=== PATIENT | female | born 1970 | race Caucasian/White ===

== ENCOUNTER 2017-01-16 19:00 | Inpatient (IN) | payer BC ==
[~2017-01-16] VITALS: Ht 165.1 cm; Wt 90.5 kg
[~2017-01-16 19:00] MED LIST: ALPR0.5T PO; ATOR20TA PO; CYCL1DRO EACHEYE; LEVO75TA5 PO; LOSA1TAB17 PO; METF500T4 PO; METO50TA10 PO; MOME17SP NS; OMEG500C PO
--- NOTE | 2017-01-16 19:05 | ED.ADGEN ---
Past History Past Medical History: Hypertension, Migraines Adult General Chief Complaint Chief Complaint " .. I some times get migraine headaches.. but the usually go away with tylenol or ibuprofen.. this one is more persistent.." HPI HPI Patient is a 46 year old female who presents with complaints of migraine headache. Denies travel. Patient denies history cancer. Patient denies any trauma eyes any specific ill contacts. Patient does state she feels like she's trying to come down for cold. Patient states she has been taking her hypertensive meds directed. Patient normally follows with . Review of Systems Review of Systems Constitutional: Denies fever or chills [] Eyes: Denies change in visual acuity, redness, or eye pain. Pt. complains of some photophobia HENT: Denies nasal congestion or sore throat [] Respiratory: Denies cough or shortness of breath [] Cardiovascular: No additional information not addressed in HPI [] GI: Denies abdominal pain, , vomiting, bloody stools or diarrhea [] complaints of nausea : Denies dysuria or hematuria [] Musculoskeletal: Denies back pain or joint pain [] Integument: Denies rash or skin lesions [] Neurologic: Complaints of headache. Denies, focal weakness or sensory changes [] Endocrine: Denies polyuria or polydipsia [] Family History Family History Noncontributory Current Medications Current Medications Current Medications Medications (Trade) Dose Ordered Sig/Ann-Marie Start Time Stop Time Status Last Admin Dose Admin Clonidine HCl (Catapres) 0.2 mg 1X ONCE 01/16/17 20:30 01/16/17 20:31 DC 01/16/17 21:21 0.2 MG Lactated Ringer's (Iv Lactated Ringers) 1,000 ml @ 1,000 mls/hr Q1H 01/16/17 20:15 01/16/17 21:20 1,000 MLS/HR Lorazepam 1 mg 1 mg 1X ONCE 01/16/17 20:30 01/16/17 20:31 DC 01/16/17 21:22 1 MG Orphenadrine Citrate 60 mg 60 mg 1X ONCE 01/16/17 20:30 01/16/17 20:31 DC 01/16/17 21:22 60 MG Oxycodone/ Acetaminophen (Percocet 10/325) 1 tab 1X ONCE 01/16/17 20:30 01/16/17 20:31 DC 01/16/17 21:22 1 TAB Sodium Chloride (Iv Sodium Chloride 0.9% 50ml) 50 ml @ As Directed STK-MED ONCE 01/16/17 21:10 01/16/17 21:11 DC Valproic Acid 500 mg 500 mg STK-MED ONCE 01/16/17 21:09 01/16/17 21:10 DC Valproic Acid/ Sodium Chloride (Depacon/Iv Sodium Chloride 0.9% 50ml) 55 ml @ 55 mls/hr 1X STAT 01/16/17 20:23 01/16/17 21:22 DC 01/16/17 21:23 55 MLS/HR Allergies Allergies Allergies Coded Allergies Type Severity Reaction Last Updated Verified cephalexin Allergy Unknown 10/30/14 Yes ciprofloxacin Allergy Unknown 10/30/14 Yes morphine Allergy Unknown 10/30/14 Yes Physical Exam Physical Exam Constitutional: Mild distress, non-toxic appearance. [] HENT: Normocephalic, atraumatic, bilateral external ears normal, oropharynx moist, no oral exudates, nose normal. [] Eyes: PERRLA, EOMI, conjunctiva normal, no discharge. Glasses. Mild photophobia Neck: Normal range of motion, no tenderness, supple, no stridor. [] Cardiovascular:Heart rate regular rhythm, no murmur [] Lungs & Thorax: Bilateral breath sounds clear to auscultation [] Abdomen: Bowel sounds normal, soft, no tenderness, no masses, no pulsatile masses. [Obese. Skin: Warm, dry, no erythema, no rash. [] Back: No tenderness, no CVA tenderness. [] Extremities: No tenderness, no cyanosis, no clubbing, ROM intact, no edema. [] Neurologic: Alert and oriented X 3, normal motor function, normal sensory function, no focal deficits noted. No drift. No Romberg. Ferritin nose good. Soaking Tank Worker equal. DTRs are +2 at patella and brachial. Psychologic: Affect anxious, judgement normal, mood normal. [] Current Patient Data Vital Signs Vital Signs Date Time Temp Pulse Resp B/P Pulse Ox O2 Delivery O2 Flow Rate FiO2 01/16/17 22:52 68 20 146/58 90 Room Air 01/16/17 19:43 98.1 Lab Results Laboratory Tests Test 01/16/17 20:55 01/16/17 21:30 White Blood Count 8.5x10^3/uL (4.0-11.0) Red Blood Count 4.61x10^6/uL (3.50-5.40) Hemoglobin 14.2g/dL (12.0-15.5) Hematocrit 43.1% (36.0-47.0) Mean Corpuscular Volume 94fL (79-100) Mean Corpuscular Hemoglobin 31pg (25-35) Mean Corpuscular Hemoglobin Concent 33g/dL (31-37) Red Cell Distribution Width 13.3% (11.5-14.5) Platelet Count 201x10^3/uL (140-400) Neutrophils (%) (Auto) 54% (31-73) Lymphocytes (%) (Auto) 36% (24-48) Monocytes (%) (Auto) 7% (0-9) Eosinophils (%) (Auto) 2% (0-3) Basophils (%) (Auto) 1% (0-3) Neutrophils # (Auto) 4.6x10^3uL (1.8-7.7) Lymphocytes # (Auto) 3.1x10^3/uL (1.0-4.8) Monocytes # (Auto) 0.6x10^3/uL (0.0-1.1) Eosinophils # (Auto) 0.2x10^3/uL (0.0-0.7) Basophils # (Auto) 0.0x10^3/uL (0.0-0.2) Erythrocyte Sedimentation Rate 34 (0-25) H PTT 23SEC (23-33) D-Dimer (Tabitha) 0.30mg/L (0.00-0.50) Sodium Level 146mmol/L (136-145) H Potassium Level 3.6mmol/L (3.5-5.1) Chloride Level 105mmol/L (98-107) Carbon Dioxide Level 29mmol/L (21-32) Anion Gap 12 (6-14) Blood Urea Nitrogen 10mg/dL (7-20) Creatinine 0.8mg/dL (0.6-1.0) Estimated GFR (Cockcroft-Gault) 76.6 Glucose Level 109mg/dL (70-99) H Calcium Level 9.5mg/dL (8.5-10.1) Magnesium Level 2.1mg/dL (1.8-2.4) Total Bilirubin 0.3mg/dL (0.2-1.0) Direct Bilirubin 0.1mg/dL (0.0-0.2) Aspartate Amino Transferase (AST) 42U/L (15-37) H Alanine Aminotransferase (ALT) 45U/L (14-59) Alkaline Phosphatase 95U/L (46-116) Troponin I Quantitative < 0.017ng/mL (0-0.055) C-Reactive Protein 3.1mg/L (0-3.3) FO-[id number]-[id number]-Type Natriuretic Peptide 34pg/mL (0-124) Total Protein 7.8g/dL (6.4-8.2) Albumin 4.0g/dL (3.4-5.0) Lipase 237U/L (73-393) Urine Collection Type Unknown Urine Color Yellow Urine Clarity Clear Urine pH 7.0 Urine Specific [place] 1.015 Urine Protein Neg (NEG-TRACE) Urine Glucose (UA) Negmg/dL (NEG) Urine Ketones (Stick) Negmg/dL (NEG) Urine Blood Trace (NEG) Urine Nitrite Neg (NEG) Urine Bilirubin Neg (NEG) Urine Urobilinogen Dipstick 0.2mg/dL (0.2 mg/dL) Urine Leukocyte Esterase Neg (NEG) Urine RBC 0/HPF (0-2) Urine WBC Occ/HPF (0-4) Urine Squamous Epithelial Cells Occ/LPF Urine Bacteria 0/HPF (0-FEW) Urine Opiates Screen Neg (NEG) Urine Methadone Screen Neg (NEG) Urine Barbiturates Neg (NEG) Urine Phencyclidine Screen Neg (NEG) Urine Amphetamine/Methamphetamine Neg (NEG) Urine Benzodiazepines Screen Pos (NEG) Urine Cocaine Screen Neg (NEG) Urine Cannabinoids Screen Neg (NEG) Urine Ethyl Alcohol Neg (NEG) EKG EKG My interpretation of EKG shows a sinus 68 with no findings acute STEMI [] Radiology/Procedures Radiology/Procedures Interpretation CT head shows no shift, mass, edema, bleed, or fracture. See formal report when available [] Course & Med Decision Making Course & Med Decision Making Pertinent Labs and Imaging studies reviewed. (See chart for details). Discussed options and treatment. Patient this time declines to have spinal tap. Pt. exhibits UCAR capacity. Discussed presentation, testing and tx.plan with Dr. Menjivar, will admit for further eval and tx. . Consult in am neurology. [] Final Impression Final Impression 1. Accelerated hypertension 2. Nausea and vomiting 3. Migraine headache 4. Hypernatremia 5. Elevated AST 6. Lt. Otitis [] Problems: Dragon Disclaimer Dragon Disclaimer This electronic medical record was generated, in whole or in part, using a voice recognition dictation system. BEA MCCOY MD Jan 16, 2017 19:05
[2017-01-16] MEDS ORDERED: IV RINGERS SOLUTION,LACTATED 1,000 ML IV SCH (20:15)
[2017-01-16] MEDS ORDERED: VALPROATE SODIUM 500 MG in IV NORMAL SALINE 50ML 50 ML IV STA (20:23)
[2017-01-16] MEDS ORDERED: ORPHENADRINE CITRATE 60 MG/2 ML VIAL. IV ONE (20:30)
[2017-01-16] MEDS ORDERED: LORAZEPAM 2 MG/ML VIAL IV ONE ×2 (20:30→23:15)
[2017-01-16] MEDS ORDERED: OXYCODONE/APAP 10/325 TABLET. PO ONE (20:30)
[2017-01-16] MEDS ORDERED: CLONIDINE HCL 0.1 MG TABLET PO ONE ×2 (20:30→23:00)
--- NOTE | 2017-01-16 21:00 | RAD ---
PROCEDURE CT head without contrast. HISTORY Elevated blood pressure, dizziness, headache today. TECHNIQUE Helical CT imaging of the brain is performed without IV contrast. PQRS: One or more the following individualized dose reduction techniques were utilized for the study: 1. Automated exposure control. 2. Adjustment of the mA and/or kV according to patient size. 3. Use of iterative reconstruction technique. COMPARISON MR brain with and without contrast October 30, 2014. FINDINGS There is no midline shift or mass effect. No extra-axial fluid collection or intraparenchymal hemorrhage. Harper-white matter differentiation is preserved. Ventricles and sulci are normal for patient age. The visualized paranasal sinuses and mastoid air cells are clear. The globes and orbits appear intact. No acute calvarial abnormality. IMPRESSION No acute intracranial abnormality. Electronically signed by: Jb Diaz MD (Jan 16, 2017 20:59:13)
[2017-01-16] MEDS ORDERED: VALPROATE SODIUM 500 MG/5 ML VIAL IV ONE (21:09)
[2017-01-16] MEDS ORDERED: IV NORMAL SALINE 50ML 50 ML ONE (21:10)
[2017-01-16 21:35] LABS: BASO % 1 % (0-3); EOS # 0.2 x10^3/uL (0.0-0.7); EOS % 2 % (0-3); HEMATOCRIT 43.1 % (36.0-47.0); HEMOGLOBIN 14.2 g/dL (12.0-15.5); LYMPH # 3.1 x10^3/uL (1.0-4.8); LYMPH % 36 % (24-48); MEAN CORPUSCULAR HEMOGLOBIN 31 pg (25-35); MEAN CORPUSCULAR HGB CONC 33 g/dL (31-37); MEAN CORPUSCULAR VOLUME 94 fL (79-100); MONO # 0.6 x10^3/uL (0.0-1.1); MONO % 7 % (0-9); NEUT # 4.6 x10^3uL (1.8-7.7); NEUT % 54 % (31-73); PLATELET COUNT 201 x10^3/uL (140-400); RED BLOOD COUNT 4.61 x10^6/uL (3.50-5.40); RED CELL DISTRIBUTION WIDTH 13.3 % (11.5-14.5); WHITE BLOOD COUNT 8.5 x10^3/uL (4.0-11.0)
[2017-01-16 22:05] LABS: CALCIUM 9.5 mg/dL (8.5-10.1); CREATININE 0.8 mg/dL (0.6-1.0); DIRECT BILIRUBIN 0.1 mg/dL (0.0-0.2); GFR 76.6; MAGNESIUM 2.1 mg/dL (1.8-2.4); POTASSIUM 3.6 mmol/L (3.5-5.1); TOTAL BILIRUBIN 0.3 mg/dL (0.2-1.0); TOTAL PROTEIN 7.8 g/dL (6.4-8.2)
[2017-01-16 22:16] LABS: AMPHETAMINE/METHAMPHETAMINE NEG (NEG); BARBITURATES NEG (NEG); BENZODIAZEPINES POS (NEG); CANNABINOIDS NEG (NEG); COCAINE NEG (NEG); METHADONE NEG (NEG); OPIATES NEG (NEG); PHENCYCLIDINE NEG (NEG)
[2017-01-16 22:23] LABS: BACTERIA,URINE 0 /HPF (0-FEW); BILIRUBIN,URINE NEG (NEG); CLARITY,URINE CLEAR; COLOR,URINE YELLOW; GLUCOSE,URINE NEG (NEG); NITRITE,URINE NEG (NEG); RBC,URINE 0 /HPF (0-2); SQUAMOUS EPITHELIAL CELL,UR OCC /LPF; UROBILINOGEN,URINE 0.2 mg/dL (0.2 mg/dL); WBC,URINE OCC /HPF (0-4)
--- NOTE | 2017-01-16 22:54 | EKG ---
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
[2017-01-16 22:56] LABS: SEDIMENTATION RATE 34 (0-25)
[2017-01-16] MEDS ORDERED: PROMETHAZINE IM 25 MG/ML VIAL IM ONE (23:00)
[2017-01-16] MEDS ORDERED: SUMATRIPTAN 6 MG/0.5 ML VIAL. SQ ONE (23:00)
[2017-01-16] MEDS ORDERED: FENTANYL PF 100 MCG/2 ML VIAL. IV ONE (23:00)
[2017-01-16] MEDS ORDERED: CLONIDINE TTS-2 PATCH TD ONE (23:00)
[2017-01-16] MEDS ORDERED: DIPHENHYDRAMINE 50 MG/ML VIAL IVP ONE (23:00)
[2017-01-16] MEDS: ONDANSETRON PF 4 MG/2 ML VIAL. IV PRN (23:20)
--- NOTE | 2017-01-17 00:11 | ACF ---
Admission Criteria Forms HEADACHES Clinical Indications for Admission to Inpatient Care (Place 'X' for any and all applicable criteria): Admission is indicated for ANY ONE of the following(1)(2)(3)(4): [X]I. Inpatient admission required rather than observational care (Also use Headaches: Observation Care as appropriate) because of ANY ONE of the following: [ ]a) Severe pain requiring acute inpatient management [ ]b) Altered mental status that is severe or persistent [ ]c) Vomiting or dehydration that is severe or persistent [ ]d) New-onset focal neurologic deficit that is severe or persistent [X]e) Hypertension requiring inpatient treatment [ ]f) Severe (new) neurologic findings requiring inpatient care as indicated by ANY ONE of following(9)(10): [ ]1) Papilledema [ ]2) Cerebral edema [ ]3) Mass effect on CT scan [ ]4) Cerebral bleeding, ischemia, or vasospasm(16) [ ]5) Hydrocephalus(17) [ ]6) Uncontrolled seizures [ ]g) IV infusion of anticoagulation, platelet inhibitors vasoactive, or antiarrhythmic medication. [ ]h) Cerebral bleeding, hydrocephalus, or vasospasm monitoring (16) [ ]i) Increased intracranial pressure or cerebral edema monitoring (17) [ ]j) Other condition, treatment or monitoring requiring inpatient admission [ ]II. Unruptured but threatening aneurysm or vascular malformation [ ]III. Venous sinus thrombosis [ ]IV. Increased intracranial pressure [ ]V. Cerebral spinal fluid leak with decreased intracranial pressure [ ]. Medication-overuse headache that has failed all outpatient management options [ ]VII. Vasculitis (eg, giant cell (temporal) arteritis, central nervous system vasculitis) requiring IV corticosteroids, IV antithrombotic therapy, or inpatient monitoring (eg, visual symptoms or findings, other ischemic manifestations)[A](10)(11) Extended stay beyond goal length of stay may be needed for (27): [ ]a) Intractable migraine [ ]b) Subarachnoid or intracranial hemorrhage [ ]c) Malignant hypertension [ ]d) Detoxification from drug withdrawal in medication-overuse headache (29) The original [facility] content created by Abdirahman Tipton has been revised. The portions of the content which have been revised are identified through the use of italic text or in bold, and Abdirahman Tipton has neither reviewed nor approved the modified material.All other unmodified content is copyright [facility]. Please see references footnoted in the original [facility] edition 2016 Admission Criteria Met?: Yes BILL CHRISTIE Jan 17, 2017 00:11
[2017-01-17 00:22] VITALS: BP 157/92
[2017-01-17] MEDS ORDERED: AMOX1TAB61 PO (00:40)
[2017-01-17] MEDS ORDERED: MESA0.37 PO (00:40)
[2017-01-17] MEDS ORDERED: SERT50TA PO (00:53)
[2017-01-17] MEDS ORDERED: METO100T11 PO (00:53)
[2017-01-17 04:12] LABS: BASO # 0.1 x10^3/uL (0.0-0.2); BASO % 1 % (0-3); EOS # 0.2 x10^3/uL (0.0-0.7); EOS % 3 % (0-3); HEMATOCRIT 40.2 % (36.0-47.0); HEMOGLOBIN 13.4 g/dL (12.0-15.5); LYMPH # 3.7 x10^3/uL (1.0-4.8); LYMPH % 40 % (24-48); MEAN CORPUSCULAR HEMOGLOBIN 31 pg (25-35); MEAN CORPUSCULAR HGB CONC 33 g/dL (31-37); MEAN CORPUSCULAR VOLUME 94 fL (79-100); MONO # 0.6 x10^3/uL (0.0-1.1); MONO % 6 % (0-9); NEUT # 4.6 x10^3uL (1.8-7.7); NEUT % 50 % (31-73); PLATELET COUNT 192 x10^3/uL (140-400); RED BLOOD COUNT 4.27 x10^6/uL (3.50-5.40); RED CELL DISTRIBUTION WIDTH 13.3 % (11.5-14.5); WHITE BLOOD COUNT 9.3 x10^3/uL (4.0-11.0)
[2017-01-17 04:49] LABS: ALBUMIN 3.8 g/dL (3.4-5.0); ALBUMIN/GLOBULIN RATIO 1.1 (1.0-1.7); GFR 59.2; POTASSIUM 4.2 mmol/L (3.5-5.1); TOTAL BILIRUBIN 0.3 mg/dL (0.2-1.0); TOTAL PROTEIN 7.3 g/dL (6.4-8.2)
[2017-01-17] MEDS: FENTANYL PF 100 MCG/2 ML VIAL. IV PRN ×2 (05:11→07:33)
[2017-01-17] MEDS: LEVOTHYROXINE 75 MCG TABLET PO SCH (05:11)
[2017-01-17 05:27] VITALS: BP 110/66
[2017-01-17] MEDS: ONDANSETRON PF 4 MG/2 ML VIAL. IV PRN ×3 (07:33→22:21)
[2017-01-17] MEDS: AMOXICILLIN/K CLAV 875/125MG TABLET. PO SCH ×2 (08:52→19:47)
[2017-01-17] MEDS: LOSARTAN 50 MG TABLET. PO SCH (08:53)
[2017-01-17] MEDS: HYDROCHLOROTHIAZIDE 25 MG TABLET PO SCH (08:54)
[2017-01-17] MEDS: ALPRAZOLAM 0.5 MG TABLET PO SCH (08:54)
[2017-01-17] MEDS: MESALAMINE 1.2 GM TABLET.DR PO SCH (08:54)
[2017-01-17] MEDS: SERTRALINE 50 MG TABLET. PO SCH ×2 (08:55→19:47)
[2017-01-17] MEDS ORDERED: IV RINGERS SOLUTION,LACTATED 1,000 ML IV SCH ×2 (09:00→13:30)
[2017-01-17] MEDS ORDERED: AMOXICILLIN/K CLAV 875/125MG TABLET. PO SCH (09:00)
[2017-01-17] MEDS: TOPIRAMATE 25 MG TABLET. PO SCH ×2 (09:54→19:47)
[2017-01-17] MEDS ORDERED: KETOROLAC 30 MG/ML VIAL. IV ONE (10:00)
[2017-01-17 10:45] VITALS: BP 106/70
--- NOTE | 2017-01-17 11:31 | CONS ---
DATE OF CONSULTATION: 01/17/2017 NEUROLOGIC CONSULTATION REFERRING PHYSICIAN: Stefan Menjivar MD REASON FOR CONSULTATION: Severe headaches. HISTORY OF PRESENT ILLNESS: This is a 46-year-old right-handed female who was admitted to Emergency Room yesterday after she presented with severe and recurrent throbbing frontal and temporal headaches of 7 days' duration. The patient described her headache as severe and rated at 8/10 with Tylenol. She also complains of intermittent nausea and photophobia. She described being dizzy as "unsteady." She has not had any falls. The patient has not had any history of migraine in the past, but she would have three similar headaches monthly. The patient has been suffering from left otitis media since beginning of this month. She has been treated with amoxicillin and then with Augmentin. She has been using antibiotics for the last 2 weeks. She described tenderness and swelling around the left ear. She denies visual disturbances, chest pain, shortness of breath or palpitation, dysarthria, dysphagia, weakness or paresthesia. Initial nonenhanced head CT scan revealed no acute intracranial process. The patient has had longstanding history of hypertension and her blood pressure has been high in the last 2 days. The patient declined spinal tap in Emergency Room. PAST MEDICAL HISTORY: Significant for hypertension, intermittent headaches, anxiety, Crohn disease, fibromyalgia and hypothyroidism. PAST SURGICAL HISTORY: Significant for , tonsillectomy, adenoidectomy, cervical spine fusion, right shoulder surgery and carpal tunnel release. SOCIAL HISTORY: The patient is . She has 2 children. She denies smoking, alcohol drinking, or illicit drug use. FAMILY HISTORY: Positive for hypothyroidism and hypertension. CURRENT MEDICATIONS: Hydrochlorothiazide 25 mg p.o. daily, mesalamine 1.2 g p.o. daily, losartan 100 mg daily, sertraline 50 mg b.i.d., metoprolol XL 100 mg daily, alprazolam 0.5 mg p.o. daily, Augmentin 875/125 one tablet p.o. daily, levothyroxine 75 mcg p.o. daily, Fentanyl 50 mcg IV q.2h p.r.n., Zofran 8 mg q.4h hours p.r.n. for nausea. ALLERGIES: CEPHALEXIN, CIPROFLOXACIN AND MORPHINE. PHYSICAL EXAMINATION: GENERAL: Obese white female, not in acute distress. She weighs 198. VITAL SIGNS: Blood pressure 110/66, respiratory rate 18, pulse is 66 and regular, temperature is 97.8 and oxygen saturation 94% on room air. HEENT: Normocephalic, atraumatic, otherwise unremarkable. NECK: Supple. Negative for carotid bruit, lymphadenopathy or thyromegaly. LUNGS: Clear to A and P. CARDIOVASCULAR: Regular rate and rhythm, normal S1, S2. There is no S3, S4 or murmur. ABDOMEN: Soft. Bowel sounds positive. EXTREMITIES: Negative for cyanosis, clubbing or pitting edema. NEUROLOGIC: 1. MENTAL STATUS: The patient is alert and oriented x 3. The speech is fluent. There is no language dysfunction. Memory, judgment, and abstract thinking are normal. The patient denies hallucination or delusion. 2. CRANIAL NERVES: Visual hunter are full. The pupils are reactive to light and accommodation. The extraocular movements are intact. There is no nystagmus. There is no facial motor or sensory deficit. Hearing is intact bilaterally. The palate is elevated symmetrically. Sternocleidomastoid muscles are powerful bilaterally. The patient shrugs her shoulders symmetrically and protrudes her tongue in the midline without fasciculation or atrophy. 3. MOTOR EXAMINATION: No focal muscle bulk was seen. The tone is normal. The strength is 5/5 throughout. 4. SENSORY EXAMINATION: Normal pinprick, light touch, vibratory and position senses. 5. Deep tendon reflexes are symmetric and active without pathologic responses. 6. Gait and coordination are normal. LABORATORY DATA: CBC revealed white blood cells of 9300, hemoglobin 13.4, hematocrit 40.2 and platelet count 192,000. Chemistry revealed sodium 143, potassium 4.2, chloride 105, CO2 of 30, BUN 12, creatinine 1, glucose is 113, calcium 9 and AST is 40. Troponin level is less than 0.017. Urinalysis is negative for urinary tract infections. Urine drug screen is positive for benzodiazepine. IMPRESSION: 1. Intractable headaches, likely represent mixed tension and migraine headaches. 2. Hypertension may have contributed to #1. 3. Anxiety, fibromyalgia, Crohn disease, left otitis media. RECOMMENDATIONS: 1. We will start the patient on topiramate 25 mg twice daily. 2. The patient will receive for severe headaches Toradol 30 mg IV p.r.n. 3. We will start the patient on Lortab 5/325 one tablet q.6h p.r.n. for continuous headaches. 4. Avoid excessive narcotic use as possible. 5. Continue with current management initiated by Dr. Menjivar. M Ayad NEWMAN MD DR: TYRONE/sp JOB#: [id number] / [id number]
[2017-01-17] MEDS: METOPROLOL SUCC 24HR ER 100 MG TAB.ER.24H. PO SCH (11:54)
[2017-01-17] MEDS: HYDROCODONE/APAP 5/325MG TABLET. PO PRN ×2 (14:23→22:21)
[2017-01-17 15:09] VITALS: BP 128/74
[2017-01-17] MEDS: IV RINGERS SOLUTION,LACTATED 1,000 ML IV SCH ×2 (15:45→19:46)
[2017-01-17] MEDS: HYDROMORPHONE PF 1 MG/ML DISP.SYRIN. IV PRN ×2 (16:57→19:48)
--- NOTE | 2017-01-17 17:21 | RAD ---
CT study of the soft tissues of the neck without contrast Indications: Swelling of the left jaw. Possible parotid abscess. Technique: Noncontrast helical CT scanning of the soft tissues of the neck was performed from the base of skull down to the lung apices. Without contrast, the sensitivity to detect organ pathology is decreased. PQRS Compliance Statement: One or more of the following individualized dose reduction techniques were utilized for this examination: 1. Automated exposure control 2. Adjustment of the mA and/or kV according to patient size 3. Use of iterative reconstruction technique Findings: Prominent symmetric parotid glands are seen. No parotid gland abscess is seen. There is a prominent intraparotid lymph node of the superficial lobe of the left parotid gland which measures 9 mm. The submandibular salivary glands are unremarkable. The adenoids and palatine tonsils are unremarkable. The epiglottis and aryepiglottic folds and preepiglottic fat space and true cords and false cords are unremarkable. No thyroid gland mass is seen. No enlarged cervical lymphadenopathy is seen. No lung apical infiltrate is seen. No osteolytic process is seen. Anterior cervical fusion is seen at C5-C7. No prevertebral soft tissue swelling or abscess is seen. There is no opacification of the mastoid sinus or middle ear cavity on either side. No opacification of maxillary sinuses is seen. The other paranasal sinuses are not completely seen in this study. IMPRESSION: 9 mm intraparotid lymph node of the superficial lobe of the left parotid gland. No abscess is seen. Both parotid glands are prominent but symmetric. This may be seen with mumps or sialoadenitis.
--- NOTE | 2017-01-17 17:50 | HP ---
ADMIT DATE: 01/17/2017 HISTORY OF PRESENT ILLNESS: The patient is a 46-year-old female patient, who basically complaint of left-sided headache. According to her, she started having headache for the last 6 days associated with nausea, vomiting and photophobia. Her headache normally response to Tylenol. She was diagnosed with left ear infection on 01/08/2017. At that time, she was started on amoxicillin, but her pain on the left side not resolved and she saw her primary care physician on 01/15/2017. Her amoxicillin was switched to Augmentin; however, she continued to have the headache and came back last night. She came to the Emergency Room and was given multiple medications including Toradol as well as fentanyl without much improvement. PAST MEDICAL HISTORY: Significant for hypertension, hypothyroidism, Crohn's disease, fibromyalgia, Sjogren's syndrome with dry eye and dry mouth. She was also diagnosed with rheumatoid arthritis. PAST SURGICAL HISTORY: Significant for cholecystectomy, total abdominal hysterectomy, bilateral salpingo-oophorectomy. She also has right shoulder arthroscopic surgery, neck surgery, carpal tunnel release, ulnar nerve transposition, rhinoplasty. She also underwent uvulopalatoplasty for obstructive sleep apnea. ALLERGIES: She is allergic to MORPHINE, CIPROFLOXACIN and KEFLEX. MEDICATIONS: She is currently on the following medications: She is on alprazolam for Xanax 1 mg daily, Augmentin 1 tablet twice a day, levothyroxine sodium 75 mcg once a day, losartan/hydrochlorothiazide 100/25 one tablet once a day, mesalamine 375 mg 4 capsules daily. She is on metoprolol succinate 100 mg once a day, sertraline for Zoloft 50 mg p.o. b.i.d. FAMILY HISTORY: She has 2 brothers, both older, one of them has hypothyroidism and one has CVA at age of 47. Her father is alive at the age of 71 and underwent open heart surgery and aortic valve replacement. He is known to have hyperlipidemia, seizure disorder and has had permanent pacemaker placed recently. Her mother is still alive at the age of 72 and is known to have hypertension and hyperlipidemia. SOCIAL HISTORY: She is , has daughter and a son. She never smoked. Drinks alcohol very occasionally. Does not use any drugs. 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 REVIEW OF SYSTEMS: The patient denied any blurring of vision, cataract, glaucoma or macular degeneration. She did complain of pain in her left side of the face, mostly prominent at the angle of left cho around the place of parotid gland, which is tender. She has tenderness on breathing pressure and tragus and also tenderness on the left side of the face. Denied any nosebleeds, stuffy nose or postnasal drip. Denied any sore throat, sore tongue, toothache, hoarseness of voice or difficulty swallowing. Did complain of nausea and vomiting. Denied any diarrhea or constipation. Denied any hematemesis, melena or hematochezia. Denied any dysuria, frequency or hematuria. Denied any chest pain, shortness of breath, orthopnea or paroxysmal nocturnal dyspnea. PHYSICAL EXAMINATION: GENERAL: On arrival to the Emergency Room, she looked well and was clearly in no apparent distress. She was pale, but no jaundice, cyanosis, or thyromegaly. No jugular venous distension. No lower limb edema. VITAL SIGNS: Her heart rate was 76, blood pressure 150/89, temperature was 98.1, respiratory rate was 20, and oxygen saturation was 97%. HEAD, EYES, EARS, NOSE AND THROAT: Showed normocephalic, atraumatic. NECK: Supple. HEART: Showed normal first and second heart sounds with no gallop, rub or murmur. CHEST: Clear to auscultation. No crepitation or rhonchi. ABDOMEN: Distended, soft, nontender. No guarding or rigidity. No organomegaly. All hernial orifices intact. Bowel sounds normal. NEUROLOGIC: She is awake, alert, responding appropriately. Her cranial nerves intact. EXTREMITIES: She moves her extremities without difficulty. She ambulates without assistance or assistive devices. I did examine her both ears and I really could not see any evidence of otitis externa or otitis media. Most of her tenderness is around the left cho angle around specifically over left parotid gland. LABORATORY DATA: Showed serum sodium 146, potassium 3.6, chloride 105, bicarbonate 29, anion gap of 12, BUN 10, creatinine 0.8, estimated GFR was 76 mL per minute. Her glucose was 109, calcium was 9.5, magnesium 2.1. Total bilirubin, AST, ALT, alkaline phosphatase were normal. Her total protein was 7.8, albumin 4. Lipase was 237. Prothrombin time was 23. D-dimer was 0.3. Her white cell count was 8500, hemoglobin 14, hematocrit 43, MCV 94 and platelet count 201,000. Urinalysis showed the urine was yellow, clear with a pH of 7, specific gravity of 1.015. The urine was negative for protein, glucose, ketones. There was trace of blood, negative for nitrite and leukocyte esterase. There are no rbc's, no wbc's and no bacteria. Her urine toxic screen was positive for benzodiazepine, negative for opiates, methadone, barbiturates, amphetamine, methamphetamine, , cocaine and Ethyl Alcohol. She did have a CT scan of the head, which basically showed that there is no midline shift or mass effect. No extraaxial fluid collection or intraparenchymal hemorrhage. Harper white matter differentiation is preserved. Ventricles and sulci are normal for the patient's age. The visualized paranasal sinuses and mastoid air cells are clear. The globes and orbits appear intact. No acute calvarial abnormality. IMPRESSION: In summary, this is a 46-year-old female patient, who came in with complaint of severe headache involving left side of her face that is unusual, also associated with some nausea, vomiting and photophobia and sensitivity to light and noise. So far all her lab works are unremarkable. We did consult Dr. Carrero for evaluation. She was admitted, started on IV fluid. We will continue with her medication and will consult Dr. Carrero for further evaluation and treatment. JOSE LEVINE MD DR: ASHTYN/sp JOB#: [id number] / [id number]
[2017-01-17 20:11] VITALS: BP 131/77
--- NOTE | 2017-01-17 20:37 | PN ---
DATE: 01/17/2017 SUBJECTIVE: The patient is resting slightly propped up in bed, continued to complain of severe pain in her left side of the face, most prominently around the left jaw angle, over the parotid gland. She has also some tenderness over the left side of the face ____ tragus, although there is no evidence of otitis externa or otitis media. There is no tenderness in the left temporomandibular joint. She opens and closes her mouth without difficulty and that does not reproduce her pain. She tried multiple medications including topiramate, Lortab together with Toradol and fentanyl without much improvement. PHYSICAL EXAMINATION: GENERAL: When I examined her this afternoon, she looked well and was clearly in no apparent respiratory distress, pale, but no jaundice, cyanosis or thyromegaly. No jugular venous distension. No lower limb edema. VITAL SIGNS: Her heart rate was 64, blood pressure 128/74, temperature was 98.1, respiratory rate 20 and oxygen saturation was 95%. HEAD, EYES, EARS, NOSE AND THROAT: Showed normocephalic, atraumatic. NECK: Supple. HEART: Showed normal first and second heart sounds. No gallop, rub or murmur. CHEST: Clear to auscultation. No crepitation or rhonchi. ABDOMEN: Distended, soft, nontender. No guarding or rigidity. No organomegaly. Hernial orifices intact. Bowel sounds normal. NEUROLOGIC: She is awake, alert, responding appropriately. Cranial nerves are intact. She moves extremities without difficulty. She ambulates without assistance or assistive devices. Her intake over the last 24 hours was 2400, no output was recorded. LABORATORY DATA: Her lab work this morning showed that her serum sodium was 143, potassium 4.2, chloride 105, bicarbonate 30, anion gap of 8, BUN 12, creatinine 1. Estimated GFR was 59 mL per minute. Her glucose was 113, calcium was 9. Total bilirubin was 0.3. AST, ALT, alkaline phosphatase were normal. Her total protein was 7.3, albumin 3.8. TSH was 2.688. C-reactive protein was 3.1. Her sedimentation rate was 34 mm per hour. Her white cell count this morning was 9300, hemoglobin 13.4, hematocrit 40, MCV 94 and platelet count of 192,000 with normal manual differential. ASSESSMENT: Severe left-sided facial pain with tenderness mostly around her left parotid gland. PLAN: My plan is to try some hydromorphone perhaps 1 mg every 3 hours and see if she responds to that. I will also arrange for a CT scan of the soft tissue of the neck to rule out the possibility of parotitis or parotid abscess given the fact that she has Sjogren syndrome and we will decide on further management accordingly. Meanwhile, we will continue with the antibiotic in the form of Augmentin, continue with all other medications including mesalamine for her Crohn's disease. JOSE LEVINE MD DR: ASHTYN/sp JOB#: [id number] / [id number]
[2017-01-18] MEDS: HYDROMORPHONE PF 1 MG/ML DISP.SYRIN. IV PRN ×4 (01:22→20:06)
[2017-01-18] MEDS: GUAIFENESIN DM 200MG/20MG 10 ML SYRUP. PO PRN ×2 (02:23→20:05)
[2017-01-18] MEDS: IV RINGERS SOLUTION,LACTATED 1,000 ML IV SCH ×3 (02:58→15:28)
[2017-01-18] MEDS: LEVOTHYROXINE 75 MCG TABLET PO SCH (05:37)
[2017-01-18 05:54] VITALS: BP 127/79
[2017-01-18 06:54] LABS: HEMATOCRIT 36.9 % (36.0-47.0); HEMOGLOBIN 12.4 g/dL (12.0-15.5); RED BLOOD COUNT 3.96 x10^6/uL (3.50-5.40); WHITE BLOOD COUNT 6.1 x10^3/uL (4.0-11.0)
[2017-01-18 07:10] LABS: CALCIUM 8.3 mg/dL (8.5-10.1); GFR 59.2; POTASSIUM 3.4 mmol/L (3.5-5.1)
[2017-01-18] MEDS: LOSARTAN 50 MG TABLET. PO SCH (08:39)
[2017-01-18] MEDS: AMOXICILLIN/K CLAV 875/125MG TABLET. PO SCH ×2 (08:39→20:05)
[2017-01-18] MEDS: MESALAMINE 1.2 GM TABLET.DR PO SCH (08:39)
[2017-01-18] MEDS: HYDROCHLOROTHIAZIDE 25 MG TABLET PO SCH (08:39)
[2017-01-18] MEDS: ALPRAZOLAM 0.5 MG TABLET PO SCH (08:40)
[2017-01-18] MEDS: METOPROLOL SUCC 24HR ER 100 MG TAB.ER.24H. PO SCH (08:40)
[2017-01-18] MEDS: TOPIRAMATE 25 MG TABLET. PO SCH ×2 (08:40→20:05)
[2017-01-18] MEDS: SERTRALINE 50 MG TABLET. PO SCH ×2 (08:40→20:05)
[2017-01-18] MEDS: ONDANSETRON PF 4 MG/2 ML VIAL. IV PRN ×3 (09:05→20:05)
[2017-01-18] MEDS: HYDROCODONE/APAP 5/325MG TABLET. PO PRN ×2 (09:05→14:08)
[2017-01-18] MEDS ORDERED: TOPIRAMATE 25 MG TABLET. PO ONE (10:00)
[2017-01-18 10:59] VITALS: BP 118/73
[2017-01-18 15:39] VITALS: BP 95/60
--- NOTE | 2017-01-18 16:39 | PN ---
DATE: 01/18/2017 SUBJECTIVE: The patient continues to have severe frontal headaches associated with nausea, photophobia and phonophobia. She denies any other medical complaints. Fentanyl has not been helpful. The patient, however, on Dilaudid IV every 1 hour p[address]r.n. for severe headaches. CT scan of the neck revealed 9 mm intraparotid lymph node of the superficial lobe of the left parotid gland. Negative for abscess. OBJECTIVE: GENERAL: Well-developed female, not in acute distress. VITAL SIGNS: Stable, blood pressure is 127/79, respiratory rate 18, pulse is 71 and regular, temperature is 98.1, oxygen saturation is 91% on room air. HEENT: Normocephalic, atraumatic, otherwise unremarkable except for tenderness over the frontal sinus bilaterally. NECK: Supple. Negative for carotid bruit, lymphadenopathy or thyromegaly. LUNGS: Clear to A and P. CARDIOVASCULAR: Regular rate and rhythm, normal S1, S2. There is no S3, S4 or murmur. ABDOMEN: Soft. Bowel sounds positive. EXTREMITIES: Negative for cyanosis, clubbing or pitting edema. NEUROLOGIC: Normal mental status and intact cranial nerves. There is no focal motor or sensory deficit. Deep tendon reflexes are symmetric and active without pathologic responses. Gait and coordination are normal. LABORATORY DATA: CBC revealed white blood cells of 6.1, hemoglobin 12.4, hematocrit 36.9, platelet count 154,000. Chemistry revealed sodium 138, potassium 3.4, chloride 106, CO2 30, BUN 9, creatinine 1, glucose 111, calcium 8.3. IMPRESSION: 1.Intractable headaches represents mixed tension and migraine headaches. Other possible etiology includes sinusitis and otitis media. 2.Anxiety, fibromyalgia. RECOMMENDATIONS: 1.We will increase Topamax to 50 mg twice daily. 2.Brain MRI with contrast. 3.Continue with current management initiated by Dr. Menjivar. M Ayad NEWMAN MD DR: TYRONE/sp JOB#: [id number] / [id number]
[2017-01-18 19:54] VITALS: BP 139/76
--- NOTE | 2017-01-18 23:29 | PN ---
DATE: 01/18/2017 SUBJECTIVE: The patient is resting slightly propped up in bed, in no apparent respiratory distress; however, she continued to complain of headache mostly in the left side, although it is extensive over the forehead. She remains afebrile generally hemodynamically stable. Her lab work showed no evidence of any leukocytosis and her chemistries were normal. Her C-reactive protein was only 3.1 and her sedimentation rate was 34, slightly high. PHYSICAL EXAMINATION: GENERAL: When I examined her this afternoon, she looked slightly pale, but no jaundice, cyanosis or thyromegaly. No jugular venous distension. No lower limb edema. VITAL SIGNS: Her heart rate was 59, blood pressure was 95/60, temperature was 98.7, respiratory rate was 18 and oxygen saturation was 91%. HEAD, EYES, EARS, NOSE AND THROAT: Normocephalic, atraumatic. NECK: Supple. HEART: Showed normal first and second heart sounds with no gallop, rub or murmur. CHEST: Clear to auscultation. No crepitation or rhonchi. ABDOMEN: Distended, soft, nontender. No guarding or rigidity. No organomegaly. Hernial orifices intact. Bowel sounds normal. NEUROLOGIC: She is awake, alert, responding appropriately. Cranial nerves intact. She moves extremities without difficulty. She ambulates without assistance or assistive devices. Her intake over the last 24 hours was 4200, output was 650. LABORATORY DATA: As of yesterday, her white cell count was 6100, hemoglobin 12.4, hematocrit 36.9, MCV 93 and platelet count of 154,000. Her chemistry showed serum sodium 138, potassium 3.4, chloride 103, bicarbonate 30, anion gap of 5, BUN 9, creatinine 1, estimated GFR was 59 mL per minute. Her glucose was 111, calcium was 8.3. ASSESSMENT: Severe headache, mostly left-sided. We did a CT scan of the soft tissue of the neck, which basically showed that there is 9 mm intraparotid lymph node superficially of the left parotid gland. No abscess seen. Both parotid glands are prominent, but symmetric. This may be seen with the mumps or ____. She was evaluated by Dr. Carrero and had had an MRI done which seems to be unremarkable, although I will leave the interpretation of that to Dr. Carrero. Meanwhile, we will continue with the IV fluid. She is on IV hydromorphone as well as her Topamax was increased to 50 mg twice a day. I would evaluate her tomorrow and decide on further management accordingly. JOSE LEVINE MD DR: ASHTYN/sp JOB#: [id number] / [id number]
[2017-01-19] MEDS: HYDROMORPHONE PF 1 MG/ML DISP.SYRIN. IV PRN ×4 (01:38→15:30)
[2017-01-19] MEDS: IV RINGERS SOLUTION,LACTATED 1,000 ML IV SCH (01:38)
[2017-01-19] MEDS: ONDANSETRON PF 4 MG/2 ML VIAL. IV PRN ×2 (02:15→09:00)
[2017-01-19] MEDS: LEVOTHYROXINE 75 MCG TABLET PO SCH (06:00)
[2017-01-19 06:43] VITALS: BP 129/74
[2017-01-19 06:47] LABS: CALCIUM 8.5 mg/dL (8.5-10.1); CREATININE 1.1 mg/dL (0.6-1.0); POTASSIUM 3.4 mmol/L (3.5-5.1)
[2017-01-19] MEDS: HYDROCODONE/APAP 5/325MG TABLET. PO PRN ×2 (08:59→15:31)
[2017-01-19] MEDS: HYDROCHLOROTHIAZIDE 25 MG TABLET PO SCH (09:00)
[2017-01-19] MEDS: ALPRAZOLAM 0.5 MG TABLET PO SCH (09:01)
[2017-01-19] MEDS: LOSARTAN 50 MG TABLET. PO SCH (09:01)
[2017-01-19] MEDS: TOPIRAMATE 25 MG TABLET. PO SCH (09:01)
[2017-01-19] MEDS: METOPROLOL SUCC 24HR ER 100 MG TAB.ER.24H. PO SCH (09:02)
[2017-01-19] MEDS: AMOXICILLIN/K CLAV 875/125MG TABLET. PO SCH (09:02)
[2017-01-19] MEDS: SERTRALINE 50 MG TABLET. PO SCH (09:02)
[2017-01-19] MEDS: MESALAMINE 1.2 GM TABLET.DR PO SCH (09:04)
[2017-01-19] MEDS ORDERED: DEXAMETHASONE SOD PHOS 4 MG/ML VIAL IV ONE (10:30)
[2017-01-19] MEDS ORDERED: METOCLOPRAMIDE HCL 10 MG/2 ML VIAL. IV ONE (10:30)
[2017-01-19] MEDS ORDERED: DIHYDROERGOTAMINE 1 MG/ML AMPUL. IVP ONE (10:30)
[2017-01-19] MEDS ORDERED: POTASSIUM CL 40MEQ IN 0.9%NACL 1,000 ML IV SCH (14:15)
[2017-01-19 15:32] VITALS: BP 120/88
--- NOTE | 2017-01-19 23:17 | PN ---
DATE: SUBJECTIVE: The patient continues to have severe frontal headaches associated with nausea and sometimes vomiting, photophobia and phonophobia. She also complains of neck rigidity, neck stiffness since last night. Apparently, her current pain medication has not relieved her symptoms. OBJECTIVE: GENERAL: Well-developed, well-nourished white female, not in acute distress. VITAL SIGNS: Blood pressure 129/74, respiratory rate 20, pulse is 65 and regular, temperature 98.3 and oxygen saturation is 92% on room air. HEENT: Normocephalic, atraumatic, otherwise unremarkable. NECK: Slightly rigid. Negative for carotid bruit, lymphadenopathy or thyromegaly. LUNGS: Clear to A and P. CARDIOVASCULAR: Regular rate and rhythm, normal S1, S2. ABDOMEN: Soft. Bowel sounds positive. EXTREMITIES: Negative for cyanosis, clubbing or pitting edema. NEUROLOGICAL EXAMINATION: Mental Status: The patient is alert and oriented x 3. Speech is fluent. There is no language dysfunction, otherwise unremarkable. Cranial nerves are intact. Motor Examination: No focal muscle bulk was seen. The tone was normal. The strength was 5/5 throughout. Sensory examination revealed normal pinprick, light touch, vibratory and position senses. Deep tendon reflexes were symmetric and active without pathologic responses. Gait and coordination is normal. DIAGNOSTIC DATA: Brain MRI with contrast revealed evidence of nonspecific white matter, small vessel disease, otherwise unremarkable. IMPRESSION: 1. ____ migraine and tension headaches, etiology uncertain, the patient had otitis media in the past 2 weeks, rule out severe migraine headaches versus septic meningitis or pseudotumor cerebri. 2. Anxiety, depressions and fibromyalgia. RECOMMENDATIONS: 1. A cocktail of Reglan 10 mg to be given IV slowly followed by DHE 1 mg IV slowly followed by dexamethasone 4 mg IV slowly for intractable migraine headaches. 2. If the above cocktail did not improve her headaches, we will request spinal tap with measuring opening and closing pressure along with routine profile for meningitis and possible aseptic meningitis. Otherwise, in the meantime, we will continue with current management. M Ayad NEWMAN MD DR: TYRONE/sp JOB#: [id number] / [id number]
--- NOTE | 2017-01-20 02:22 | PN ---
DATE: 01/19/2017 SUBJECTIVE: The patient is resting slightly propped up, sleeping, in no apparent respiratory distress. On questioning her, she continues to complain of headache. Apparently, she was given a cocktail made of dihydroergotamine mesylate, metoclopramide as well as dexamethasone sodium phosphate, apparently without much improvement. Dr. Carrero plans to arrange for lumbar puncture if this was not effective. We have contacted his office; however, we have has not received her call back on the time of this dictation. PHYSICAL EXAMINATION: GENERAL: When I examined her, she looked pale, but no jaundice, cyanosis, or thyromegaly. No jugular venous distention. No limb edema. VITAL SIGNS: Her heart rate was 65, blood pressure 129/74, temperature was 98.3, respiratory rate was 18, and oxygen saturation was 92%. HEAD, EYES, EARS, NOSE AND THROAT: Showed normocephalic, atraumatic. NECK: Supple. HEART: Showed normal first and second sounds with no gallop, rub or murmur. CHEST: Clear to auscultation. No crepitation or rhonchi. ABDOMEN: Distended, soft, nontender. No guarding or rigidity. No organomegaly. Hernial orifices intact. Bowel sounds normal. NEUROLOGIC: She is sleepy, but arousable. All cranial nerves intact. She moves extremities without difficulty. LABORATORY DATA: Her most recent lab work as of yesterday showed a white cell count 6100, hemoglobin 12.4, hematocrit 36.9, MCV 93, and platelet count of 154,000. As of this morning, her serum sodium was 139, potassium 3.4, chloride 103, bicarbonate 30, anion gap of 6, BUN 7, creatinine 1.1, estimated GFR was 53 mL per minute. Her glucose was 95 and calcium was 8.5. ASSESSMENT: Intractable headache. The CT scan was unremarkable. MRI was also unremarkable. CT scan of the soft tissue of the neck showed prominence of parotid glands. Other medical problems include hypertension, hypothyroidism, Crohn's disease, fibromyalgia, Sjogren syndrome with xerophthalmia and xerostomia. PLAN: My plan is obviously to repeat her lab works tomorrow and replenish her potassium. Await Dr. Carrero's decision regarding further management. JOSE LEVINE MD DR: Kenyon JOB#: [id number] / [id number]
== END 2017-01-19 19:00 | disposition short-term general hospital (02) | DRG 683 ==
LOC: ER 19:04 → 1 SOUTH 22:54
PROVIDERS: ADMIT Internal Medicine; ATTEND Internal Medicine
DX: I12.9 Hypertensive chronic kidney disease with stage 1 through stage 4 chronic kidney disease, or unspecified chronic kidney disease (principal); K50.90 Crohn's disease, unspecified, without complications; G43.909 Migraine, unspecified, not intractable, without status migrainosus; E03.9 Hypothyroidism, unspecified; F41.9 Anxiety disorder, unspecified; G47.33 Obstructive sleep apnea (adult) (pediatric); H66.92 Otitis media, unspecified, left ear; K11.7 Disturbances of salivary secretion; G44.209 Tension-type headache, unspecified, not intractable; M06.9 Rheumatoid arthritis, unspecified; E66.9 Obesity, unspecified; M35.00 Sjogren syndrome, unspecified; M79.7 Fibromyalgia; Z82.0 Family history of epilepsy and other diseases of the nervous system; Z82.3 Family history of stroke; Z82.49 Family history of ischemic heart disease and other diseases of the circulatory system; Z90.710 Acquired absence of both cervix and uterus; Z98.1 Arthrodesis status; Z68.33 Body mass index [BMI] 33.0-33.9, adult; Z88.1 Allergy status to other antibiotic agents; Z88.5 Allergy status to narcotic agent; N18.3 Chronic kidney disease, stage 3 (moderate)
CPT/HCPCS: 36415; 70450; 70490; 80048; 80053; 80076; 81001; 83690; 83735; 83880; 84443; 84484; 85027; 85379; 85651; 85730; 86140; 93005; 96365; 96366; 96375; G0481; J1100; J1110; J1170; J1200; J1885; J2060; J2360; J2405; J2765; J3010; J3030; J3490; J7120; 99285-25

== ENCOUNTER → 2017-04-13 | Outpatient (CLI) | payer BC ==
[~2017-04-13] MED LIST changes: +AMOX1TAB61 PO; +MESA0.372 PO; +METO100T11 PO; +SERT50TA PO
[2017-04-13] MEDS: IOHEXOL 300 MG/ML 75 ML VIAL. IV ONE (08:35)
--- NOTE | 2017-04-13 14:25 | RAD ---
Indication mass left neck. Axial images through the neck were obtained and reformatted in the coronal and sagittal planes. 75 cc of Omnipaque 300 was administered intravenously. The area of concern in the left neck was marked with a BB. Note is made of a previous examination of the neck 01/17/2017. The lung apices are clear. The visualized brain appears unremarkable. Previously identified mass in the left parotid gland measuring approximately 9 mm is again seen and appears unchanged. No dominant soft tissue mass is seen in the appearance of the neck, overall, appears unchanged relative to the previous exam IMPRESSION: No dominant soft tissue mass. 9 mm mass in the left parotid gland appears unchanged relative to the previous exam. The appearance of the neck, overall, is unchanged PQRS Compliance Statement: One or more of the following individualized dose reduction techniques were utilized for this examination: 1. Automated exposure control 2. Adjustment of the mA and/or kV according to patient size 3. Use of iterative reconstruction technique
== END | disposition home or self-care (01) ==
LOC: CT 08:00
PROVIDERS: ATTEND Otolaryngology
DX: R22.1 Localized swelling, mass and lump, neck (principal)
CPT/HCPCS: 70491; Q9967

== ENCOUNTER → 2017-08-23 | Outpatient (CLI) | payer BC ==
[~2017-08-23] MED LIST changes: -LOSA1TAB17 PO; +LOSA1TAB22 PO; +METO-247 PO; -METO100T11 PO; -METO50TA10 PO; +METO50TA29 PO
--- NOTE | 2017-08-28 13:45 | RAD ---
DATE: 08/28/2017. EXAM: DIGITAL SCREEN BILAT W/CAD. HISTORY: Routine mammographic screening. COMPARISON: 11/21/2010. This study was interpreted with the benefit of Computerized Aided Detection (CAD). FINDINGS: The breast parenchyma shows scattered fibroglandular densities. Breast parenchyma level B.. A nodule at the right 6:00 position is partially circumscribed and partially obscured. It was not clearly seen previously but may have been obscured. Elsewhere, scattered and coarse calcifications are benign. There is no suspicious finding on the left. BI-RADS CATEGORY: 0 INCOMPLETE: NEEDS ADDITIONAL IMAGING EVALUATION AND/OR PRIOR MAMMOGRAMS FOR COMPARISON.. RECOMMENDED FOLLOW-UP: ADD ADDITIONAL IMAGING. Ultrasound of the right 6:00 position to assess a new small nodule. PQRS compliance statement: Patient information was entered into a reminder system with a target due date (now) for the next mammogram. Mammography is a sensitive method for finding small breast cancers, but it does not detect them all and is not a substitute for careful clinical examination. A negative mammogram does not negate a clinically suspicious finding and should not result in delay in biopsying a clinically suspicious abnormality. "Our facility is accredited by the [employer] Mammography Program."
== END | disposition home or self-care (01) ==
LOC: MAMMO 12:43
PROVIDERS: ATTEND Family Medicine
DX: Z12.31 Encounter for screening mammogram for malignant neoplasm of breast (principal); Z90.710 Acquired absence of both cervix and uterus
CPT/HCPCS: G0202; 77067

== ENCOUNTER → 2017-09-07 | Outpatient (CLI) | payer BC ==
--- NOTE | 2017-09-07 14:28 | RAD ---
Ultrasound right breast Indication: Callback for abnormality seen on most recent screening mammogram Technique: Grayscale and color Doppler ultrasound images of the right breast. Comparison: Screening mammogram from 08/23/2017 Findings: There is a round hypoechoic mass at 7:00 position approximately 3 cm from the nipple with well-circumscribed margins, wider than taller, no posterior acoustic enhancement and no internal vascularity measuring 0.4 x 0.3 x 0.5 cm. This corresponds to the abnormality seen on the screening mammogram. No other solid or cystic lesions in the interrogated right breast. Impression: Right breast lesion as described above which corresponds to the abnormality seen on the screening mammogram with sonographic features suggesting benign etiology. BI-RADS 3: Probably benign. Follow-up ultrasound of the right breast in 6 months recommended.
== END | disposition home or self-care (01) ==
LOC: US 12:45
PROVIDERS: ATTEND Family Medicine
DX: N63.10 Unspecified lump in the right breast, unspecified quadrant (principal)
CPT/HCPCS: 76641

== ENCOUNTER → 2017-10-25 | Outpatient (CLI) | payer BC ==
--- NOTE | 2017-10-25 15:51 | RAD ---
3 views of the lumbar spine 10/25/2017 Indication: Low back pain. No injury. Comparison study: None Findings: No evidence of acute fracture or alignment abnormality is identified. Vertebral body heights are preserved. There is mild diffuse degenerative disc space narrowing more prominent at the thoracolumbar junction. There is facet arthrosis at L4-L5 and L5-S1. No evidence of spondylolysis or spondylolisthesis is seen. No acute soft tissue abnormalities are identified. Impression: Degenerative changes of the lumbar spine as described without evidence of acute fracture or alignment abnormality
== END | disposition home or self-care (01) ==
LOC: PMG 14:58
PROVIDERS: ATTEND Family Medicine
DX: M47.896 Other spondylosis, lumbar region (principal)
CPT/HCPCS: 72100

== ENCOUNTER → 2018-02-15 | Outpatient (CLI) | payer BC ==
[~2018-02-15] MED LIST changes: +IOHEXOL 300 MG/ML 75 ML VIAL. IV ONE; -METF500T4 PO; +METF500T5 PO
--- NOTE | 2018-02-15 14:52 | RAD ---
CT abdomen and pelvis without and with intravenous contrast (CT Urogram) History: Pyelonephritis, recurrent urinary tract infections, pelvic pain. Comparison: None. Technique: Initially, noncontrast CT of the abdomen and pelvis was performed. After intravenous contrast administration, 75 mL Omnipaque-300, repeat CT of the abdomen was performed in nephrographic phase. Delayed excretory phase CT of the abdomen and pelvis was also obtained. Rotating 3-D MIPS of the urinary system during excretory phase were obtained. Exposure: One or more of the following individualized dose reduction techniques were utilized for this examination: 1. Automated exposure control 2. Adjustment of the mA and/or kV according to patient size 3. Use of iterative reconstruction technique Findings: Noncontrast images demonstrate no evidence of urinary stone. Bilateral kidneys enhance and excrete symmetrically. There is no evidence of renal mass. Both ureters are opacified in their entirety and are without evidence of filling defect to suggest mass. Urinary bladder is unremarkable. Fatty liver disease is seen. Spleen, pancreas, and bilateral adrenal glands are unremarkable. Aortic atherosclerosis is seen. No bowel obstruction or inflammation is identified. Appendix is without evidence of inflammation. Uterus is absent. Gallbladder is absent. Impression: 1. Unremarkable CT urogram. No cause for patient's symptoms is identified. No evidence of urinary stone or mass. 2. Fatty liver disease. Electronically signed by: Billy Morrell MD (02/15/2018 2:49 PM) [place] [id number]
== END | disposition home or self-care (01) ==
LOC: CT 08:40
PROVIDERS: ATTEND Family Medicine
DX: N12 Tubulo-interstitial nephritis, not specified as acute or chronic (principal); K76.0 Fatty (change of) liver, not elsewhere classified; I70.0 Atherosclerosis of aorta; Z87.440 Personal history of urinary (tract) infections
CPT/HCPCS: 74178; Q9967

== ENCOUNTER → 2018-03-11 | Outpatient (CLI) | payer BC ==
[~2018-03-11] MED LIST changes: -IOHEXOL 300 MG/ML 75 ML VIAL. IV ONE
--- NOTE | 2018-03-11 10:33 | RAD ---
Right breast ultrasound, 03/11/2018: History: Follow-up nodule A small hypoechoic nodule is redemonstrated at the 7:00 location in the right breast approximately 3 cm in the nipple. It is unchanged in size, measuring 5 mm in greatest diameter. It is slightly wider than tall. There is minimal through transmission. This is probably a complicated cyst or small fibroadenoma. No other abnormality is seen in this region. IMPRESSION: Stable benign-appearing right breast nodule. Sonographic follow-up in 6 months at the time of the patient's yearly mammography is suggested. BI-RADS 3-probably benign findings
== END | disposition home or self-care (01) ==
LOC: US 09:38
PROVIDERS: ATTEND Family Medicine
DX: R92.8 Other abnormal and inconclusive findings on diagnostic imaging of breast (principal)
CPT/HCPCS: 76641

== ENCOUNTER → 2018-11-04 | Outpatient (CLI) | payer BC ==
[~2018-11-04] MED LIST changes: +METF500T16 PO; -METF500T5 PO
--- NOTE | 2018-11-05 07:27 | RAD ---
DATE: Digital 2-D diagnostic bilateral mammogram, limited right breast ultrasound, 11/04/2018 EXAM: DIGITAL DIAGNOSTIC BILATERAL, BREAST RIGHT HISTORY: Follow-up 7:00 position right breast nodule. Patient is due for screening mammogram. COMPARISON: Right breast ultrasound 03/11/2018, 09/07/2017, mammogram 08/23/2017 This study was interpreted with the benefit of Computerized Aided Detection (CAD). The breast parenchyma shows scattered fibroglandular densities. Breast parenchyma level B. FINDINGS: Bilateral digital 2-D CC and MLO views. There is a mass in the inferior right breast at approximately the 7:00 position similar to prior examination. No new mass CONDITION architectural distortion in the right breast. No suspicious mass, calcination architectural distortion in the left breast. Patient will proceed to limited right breast ultrasound for further evaluation of the 7:00 position mass. Limited right breast ultrasound: At the 7:00 position 3 cm from the nipple, there is no significant change in circumscribed cyst with internal debris demonstrating posterior acoustic enhancement with no internal vascularity measuring 0.5 x 0.6 x 0.6 cm, previously 0.6 x 0.6 x 0.5 cm when measured in a similar fashion. IMPRESSION: 1. Stable cyst with internal debris in the right breast at the 7:00 position, likely complicated cyst though follow-up limited right breast ultrasound in 6 months is recommended. 2. Otherwise, no mammographic evidence of malignancy. BI-RADS CATEGORY: 3 PROBABLY BENIGN FINDING(S)-SHORT INTERVAL FOLLOW-UP SUGGESTED RECOMMENDED FOLLOW-UP: 6M 6 MONTH FOLLOW-UP PQRS compliance statement: Patient information was entered into a reminder system with a target due date for the next mammogram. Mammography is a sensitive method for finding small breast cancers, but it does not detect them all and is not a substitute for careful clinical examination. A negative mammogram does not negate a clinically suspicious finding and should not result in delay in biopsying a clinically suspicious abnormality. "Our facility is accredited by the [employer] Mammography Program."
== END | disposition home or self-care (01) ==
LOC: MAMMO 13:38
PROVIDERS: ATTEND Family Medicine
DX: N60.01 Solitary cyst of right breast (principal)
CPT/HCPCS: 76641; 77066

== ENCOUNTER → 2019-03-04 | Outpatient (CLI) | payer BC ==
--- NOTE | 2019-03-04 14:24 | RAD ---
CT of the chest and abdomen without contrast, 02/24/2019: HISTORY: Family history of aortic aneurysm Noncontrast scans were obtained as requested The thoracic aorta is of normal caliber. There is mild calcific plaquing involving the abdominal aorta without evidence of aneurysm. The heart is of normal size. No mediastinal adenopathy is seen. There is minimal dependent atelectasis or scarring in both lungs. No pulmonary mass or significant consolidation is seen. There is no evidence of pleural fluid. The liver is of lower than normal density in a diffuse pattern suggesting fatty change. The gallbladder is surgically absent. Mild prominence of the common hepatic duct is compatible with the postcholecystectomy state. No pancreatic abnormality is seen. The spleen is unremarkable. No renal abnormality is detected. The bowel loops are not dilated. No free fluid is evident in the abdomen. Moderate multilevel hypertrophic degenerative changes are present in the spine. An anterior fixation plate and screws is partially visualized in the lower cervical spine. IMPRESSION: 1. Mild aortic calcific plaquing without evidence of aneurysm. 2. Hepatic steatosis. 3. No acute chest or abdominal abnormality is detected. PQRS Compliance Statement: One or more of the following individualized dose reduction techniques were utilized for this examination: 1. Automated exposure control 2. Adjustment of the mA and/or kV according to patient size 3. Use of iterative reconstruction technique Electronically signed by: Paxton Edwards MD (03/04/2019 2:21 PM) [facility]
== END | disposition home or self-care (01) ==
LOC: CT 08:50
PROVIDERS: ATTEND Family Medicine
DX: I70.0 Atherosclerosis of aorta (principal); K76.0 Fatty (change of) liver, not elsewhere classified; Z90.710 Acquired absence of both cervix and uterus; Z82.49 Family history of ischemic heart disease and other diseases of the circulatory system
CPT/HCPCS: 71250; 74150

== ENCOUNTER → 2019-04-23 | Outpatient (CLI) | payer BC ==
--- NOTE | 2019-04-23 13:24 | RAD ---
Indication: Right breast nodule six-month follow-up TECHNIQUE: Limited right breast ultrasound. COMPARISON: Multiple prior ultrasounds, the oldest from 09/07/2017 and the most recent from 11/04/2018. FINDINGS: At 7:00 position approximately 3 cm from the nipple there is a hypoechoic lobulated solid mass with ill-defined margins measuring 0.6 x 0.7 x 0.6 cm without internal vascularity. This used to measure 0.5 x 0.6 x 0.6 cm on ultrasound from 11/04/2018 and 0.5 x 0.4 x 0.3 cm ultrasound from 09/07/2017. IMPRESSION: 1. Interval change in size of right breast mass when compared to prior ultrasound from 09/07/2017 but no significant change when compared to most recent ultrasound from 11/04/2018. The features of this lesion are suspicious. BI-RADS 4: Suspicious finding. Ultrasound guided biopsy recommended. Although given significantly slow growth/change in morphology when compared to 09/07/2017 patient may be prefer to follow up in 3 months. Electronically signed by: Andrew Quiroz DO (04/23/2019 1:22 PM) [facility]
== END | disposition home or self-care (01) ==
LOC: US 12:31
PROVIDERS: ATTEND Family Medicine
DX: N63.13 Unspecified lump in the right breast, lower outer quadrant (principal)
CPT/HCPCS: 76641

== ENCOUNTER → 2019-11-04 | Outpatient (CLI) | payer BC ==
--- NOTE | 2019-11-04 16:45 | RAD ---
EXAM: 1. BILATERAL DIGITAL DIAGNOSTIC MAMMOGRAPHY. 2. RIGHT BREAST ULTRASOUND. HISTORY: Six-month follow-up after right breast excisional biopsy. Yearly follow-up. TECHNIQUE: Bilateral full field digital images were obtained in CC and MLO projections. Computer-aided detection was applied. Sonography of the right breast was performed at the prior surgical site. COMPARISON: 04/23/2019, 10/27/2018. COMPOSITION: B. There are scattered areas of fibroglandular density. FINDINGS: The previously noted right breast nodule has been resected. There is no suspicious finding on the right. On today's sonography of the right lower outer quadrant, only normal parenchyma and mild postoperative scarring is noted. There is no suspicious sonographic finding. Scattered calcifications are benign. There are no suspicious masses, microcalcifications or architectural distortion. The parenchymal pattern is stable. BI-RADS CATEGORY 2: Benign. RECOMMENDATION: 1. Routine screening mammography in one year. If mammography demonstrates dense breast tissue (heterogenously dense or extremely dense, category C or D), which could hide abnormalities, and if other risk factors for breast cancer have been identified, supplemental screening tests that may be suggested by the ordering physician may be of benefit. Dense breast tissue, in and of itself, is a relatively common condition. Therefore, this information is not provided to cause undue concern, but rather to raise awareness and to promote discussion with the referring physician regarding the presence of other risk factors, in addition to dense breast tissue. The results of this mammography examination is provided to the patient and referring physician. The patient should contact their referring physician if any questions or concerns exist regarding this report. PQRS compliance statement - Patient information was entered into a reminder system with a target due date for the next mammogram. "Our facility is accredited by the [employer] Mammography Program." Electronically signed by: Pablito Leone MD (11/04/2019 4:42 PM) [facility]
== END | disposition home or self-care (01) ==
LOC: MAMMO 12:31
PROVIDERS: ATTEND Surgery
DX: R92.1 Mammographic calcification found on diagnostic imaging of breast (principal)
CPT/HCPCS: 76641; 77066

== ENCOUNTER → 2019-11-04 | Outpatient (CLI) | payer BC ==
--- NOTE | 2019-11-04 15:02 | RAD ---
Bone densitometry 11/04/2019 1:37 PM Indication: eening exam Compari Study: None. Discussion: Bone Densitometry was performed with dual photon absorption of the lumbar spine and proximal right femur. Lumbar Spine: Bone average sity is 1.195 g/cm2 for L1-L4. core is 0.1 . Right femoral neck:: Bone average sity is 0.928 g/cm2. core is -0.8 IMPRESSION: Normal bone mineral density Note: Definitions established by the World Health Organization: Normal: T-score is -1.0 or above. Osteopenia: T-score is between -1.0 and -2.5. Osteoporosis: T-score is -2.5 or below. Electronically signed by: Vaughn Montes MD (11/04/2019 2:58 PM) [id number]
== END | disposition home or self-care (01) ==
LOC: DXRAD 12:37
PROVIDERS: ATTEND Family Medicine
DX: Z13.820 Encounter for screening for osteoporosis (principal)
CPT/HCPCS: 77080

== ENCOUNTER 2020-04-13 10:22 | Emergency (ER) | payer BC ==
[~2020-04-13] VITALS: Ht 165.1 cm; Wt 93.2 kg
--- NOTE | 2020-04-13 10:48 | PHYS DOC ---
Past History Past Medical History: Hypertension, Migraines Past Surgical History: Cholecystectomy, , Hysterectomy, Other Alcohol Use: None Drug Use: None General Adult EDM: Chief Complaint: LACERATION/AVULSION HPI: HPI: Patient is a 50-year-old female who presents to the emergency department for evaluation. She stumbled over a rug and tripped, and her hand struck a fan, and she sustained superficial abrasions on the radial aspect of her right index and middle finger. She also complains of some pain in the fingers themselves. She denies any other injuries, numbness, weakness. She is uncertain of her last tetanus. Review of Systems: Review of Systems: Constitutional: Denies fever or chills Musculoskeletal: Denies back pain or joint pain, other than as noted in the HPI Neurologic: Denies headache, focal weakness or sensory changes Heart Score: Risk Factors: Risk Factors: DM, Current or recent (<one month) smoker, HTN, HLP, family history of CAD, obesity. Risk Scores: Score 0 - 3: 2.5% MACE over next 6 weeks - Discharge Home Score 4 - 6: 20.3% MACE over next 6 weeks - Admit for Clinical Observation Score 7 - 10: 72.7% MACE over next 6 weeks - Early Invasive Strategies Allergies: Allergies: Allergies Coded Allergies Type Severity Reaction Last Updated Verified cephalexin Allergy Intermediate 01/19/17 Yes ciprofloxacin Allergy Intermediate 01/19/17 Yes morphine Allergy Intermediate 01/19/17 Yes Physical Exam: PE: PHYSICAL EXAM: HEENT: Atruamatic NECK: Supple, normal ROM, non-tender. CARDIAC: Regular Rate and Rhythm LUNGS: Clear Bilaterally EXTREMITIES: There are superficial intradermal flap type abrasions/avulsions, of the radial aspect of the right index and middle fingers, there is no definite bony tenderness to palpation or deformity. There are no other lacerations noted. Range of motion is limited by pain but intact in all digits. The remainder the extremities are atraumatic. Current Patient Data: Vital Signs: Vital Signs Date Time Temp Pulse Resp B/P (MAP) Pulse Ox O2 Delivery O2 Flow Rate FiO2 04/13/20 10:33 98.2 62 14 166/87 (113) 97 Room Air EKG: EKG: [] Radiology/Procedures: Radiology/Procedures: [] Hand x-ray negative for acute fracture. Course & Med Decision Making: Course & Med Decision Making Pertinent lmaging studies reviewed. (See chart for details) [] Discussed wound care with the patient, the need for close PCP follow-up and return precautions. Pili Disclaimer: Dragon Disclaimer: This electronic medical record was generated, in whole or in part, using a voice recognition dictation system. Departure Departure: Impression: Primary Impression: Abrasion Disposition: HOME/RESIDENCE PRIOR TO ADM Condition: STABLE Referrals: LU KWAN MD (PCP) Patient Instructions: Abrasions Additional Instructions: Keep wounds clean and dry. Apply topical antibiotic ointment and a sterile dressing at least 2 times daily. Justification of Admission: Justification of Admission: Justification of Admission Dx: N/A TYLER POLK MD Apr 13, 2020 10:48
[2020-04-13] MEDS ORDERED: DIPH,PERTUSS(ACELL),TET VAC/PF 0.5 ML SYRINGE. VAX IM ONE (11:00)
[2020-04-13 11:01] VITALS: BP 148/79
[2020-04-13] MEDS ORDERED: NEOMY/BACITR/POLYMYXIN OINT PACKET. TP ONE (11:19)
[2020-04-13] MEDS ORDERED: BACITRACIN ZINC TOPICAL OINT PACKET. TP ONE (11:45)
--- NOTE | 2020-04-13 11:47 | RAD ---
RIGHT HAND, VIEWS 3 Indication: Reason: injury Findings: There is no acute fracture or dislocation. Mild joint space narrowing and marginal osteophyte formation of the DIP joints. There is no bony erosion. Mineralization is normal. There is no radiographically apparent soft tissue swelling or radiopaque foreign body. IMPRESSION: No acute fracture. Electronically signed by: Jb Diaz MD (04/13/2020 11:45 AM) [id number]
== END 2020-04-13 11:42 | disposition home or self-care (01) ==
LOC: ER 10:22
DX: S60.410A Abrasion of right index finger, initial encounter (principal); S60.412A Abrasion of right middle finger, initial encounter; I10 Essential (primary) hypertension; G43.909 Migraine, unspecified, not intractable, without status migrainosus; Z88.1 Allergy status to other antibiotic agents; Z88.5 Allergy status to narcotic agent; W22.8XXA Striking against or struck by other objects, initial encounter; Y93.89 Activity, other specified; Y92.89 Other specified places as the place of occurrence of the external cause; Y99.8 Other external cause status
CPT/HCPCS: 73130; 90471; 90715; 99283

== ENCOUNTER 2020-07-01 07:33 | Emergency (ER) | payer BC ==
[~2020-07-01] VITALS: Ht 165.1 cm; Wt 90.7 kg
--- NOTE | 2020-07-01 07:50 | PHYS DOC ---
Past History Past Medical History: Hypertension, Migraines Past Surgical History: Cholecystectomy, , Hysterectomy, Other Alcohol Use: None Drug Use: None General Adult HPI: HPI: The history was obtained from the patient. Patient is a 50-year-old female with PMH hypertension, hypothyroidism, fibromyalgia, anxiety who presents with a chief complaint of syncope. Patient states just prior to arrival she had a syncopal event. She states that she went from a seated to a standing position. She states after going to a standing position taking couple steps she became lightheaded. She states is if she felt her heart was "fluttering." She states that she felt flushed in the room was closing in around her. States she fell to her knees and thinks she lost consciousness. She does not think she hit her head. Denies any chest pain or shortness of breath prior to the event. Denies any feelings of rapid heartbeat. States this is never happened before. States that she did not take her blood pressure medications this morning. Denies fevers. Denies vomiting. Denies history of heart failure or coronary artery disease. States she does follow with family physician. Denies any recent changes to her medications. States she has been taking Xanax almost daily over the past 2 weeks due to feeling increased anxiousness. Denies new back pain or abdominal pain. Denies acute vision or hearing changes. Denies headache no other complaints. Patient denies any history of immobilization greater than 48 hours, recent hospitalizations, recent surgery, recent trauma, , oral contraceptive usage, hormone replacement therapy, air travel greater than 8 hours, recent infectious disease, or general deterioration of their overall condition. Review of Systems: Review of Systems: Constitutional: Denies fever or chills Eyes: Denies change in visual acuity HENT: Denies nasal congestion or sore throat Respiratory: Denies cough or shortness of breath Cardiovascular: Positive for syncope GI: Denies abdominal pain, nausea, vomiting, bloody stools or diarrhea : Denies dysuria Musculoskeletal: Denies back pain or joint pain Integument: Denies rash Neurologic: Denies headache, focal weakness or sensory changes Endocrine: Denies polyuria or polydipsia Lymphatic: Denies swollen glands Psychiatric: Denies depression or anxiety Heart Score: Risk Factors: Risk Factors: DM, Current or recent (<one month) smoker, HTN, HLP, family history of CAD, obesity. Risk Scores: Score 0 - 3: 2.5% MACE over next 6 weeks - Discharge Home Score 4 - 6: 20.3% MACE over next 6 weeks - Admit for Clinical Observation Score 7 - 10: 72.7% MACE over next 6 weeks - Early Invasive Strategies Allergies: Allergies: Allergies Coded Allergies Type Severity Reaction Last Updated Verified cephalexin Allergy Intermediate 01/19/17 Yes ciprofloxacin Allergy Intermediate 01/19/17 Yes morphine Allergy Intermediate 01/19/17 Yes Physical Exam: PE: Constitutional: Well developed, well nourished, no acute distress, non-toxic appearance. [] HENT: Normocephalic, atraumatic, bilateral external ears normal, oropharynx moist, no oral exudates, nose normal. [] Eyes: PERRLA, EOMI, conjunctiva normal, no discharge. [] Neck: Normal range of motion, no tenderness, supple, no stridor. [] Cardiovascular:Heart rate regular rhythm, no murmur [] Lungs & Thorax: Bilateral breath sounds clear to auscultation [] Abdomen: Bowel sounds normal, soft, no tenderness, no masses, no pulsatile masses. [] Skin: Warm, dry, no erythema, no rash. [] Back: No tenderness, no CVA tenderness. [] Extremities: No tenderness, no cyanosis, no clubbing, ROM intact, no edema. [] Neurologic: Alert with intact cognitive function. No aphasia, dysarthria, or neglect. GCS 15. Pupils 3 mm briskly reactive b/l. No APD present. Cranial nerves 2-12 grossly intact; no facial asymmetry present, tongue midline, shoulder shrugging strength intact. Strength 5/5 and symmetric throughout. Light touch sensation intact throughout. Cerebellar testing appropriate without evidence of dysdiadochokinesia. DTR's 2+ in all 4 extremities. Negative pronator drift bilaterally. Gait normal Psychologic: Affect normal, judgement normal, mood normal. [] Current Patient Data: Labs: Laboratory Tests Test 07/01/20 08:15 White Blood Count 5.4 x10^3/uL Red Blood Count 4.09 x10^6/uL Hemoglobin 13.1 g/dL Hematocrit 38.7 % Mean Corpuscular Volume 95 fL Mean Corpuscular Hemoglobin 32 pg Mean Corpuscular Hemoglobin Concent 34 g/dL Red Cell Distribution Width 12.6 % Platelet Count 204 x10^3/uL Neutrophils (%) (Auto) 62 % Lymphocytes (%) (Auto) 27 % Monocytes (%) (Auto) 7 % Eosinophils (%) (Auto) 4 % Basophils (%) (Auto) 1 % Neutrophils # (Auto) 3.3 x10^3uL Lymphocytes # (Auto) 1.5 x10^3/uL Monocytes # (Auto) 0.4 x10^3/uL Eosinophils # (Auto) 0.2 x10^3/uL Basophils # (Auto) 0.0 x10^3/uL Sodium Level 142 mmol/L Potassium Level 4.0 mmol/L Chloride Level 103 mmol/L Carbon Dioxide Level 28 mmol/L Anion Gap 11 Blood Urea Nitrogen 8 mg/dL Creatinine 1.0 mg/dL Estimated GFR (Cockcroft-Gault) 58.2 Glucose Level 173 mg/dL Calcium Level 9.5 mg/dL Troponin I Quantitative < 0.017 ng/mL Vital Signs: Vital Signs Date Time Temp Pulse Resp B/P (MAP) Pulse Ox O2 Delivery O2 Flow Rate FiO2 07/01/20 08:05 98.1 167/84 (111) 95 EKG: EKG: [] EKG consistent with normal sinus rhythm. Ventricular rate of 65 bpm. [place] normal. Intervals normal. Flipped T waves in leads V2 and V3. Similar to EKG from January 16, 2017. Radiology/Procedures: Radiology/Procedures: [] Course & Med Decision Making: Course & Med Decision Making Pertinent Labs and Imaging studies reviewed. (See chart for details) [] Patient is a well-appearing 50-year-old female presents with chief complaint of syncope. Initial vital signs unremarkable. EKG does show nonspecific T wave abnormalities however this is consistent with previous EKGs. All labs been reassuring. At this time I do feel the patient is appropriate for discharge h ome. Low suspicion for emergent etiology regarding her syncopal event. Denies any red flag signs or symptoms. Low risk Carlton syncope score. Low suspicion for pulmonary embolism. Most likely vasovagal syncope versus orthostatic syncope based on patient's presentation. Patient is agreeable to follow-up with her primary care physician. Return precautions discussed and u nderstood. Instructed to follow-up with her primary care physician in the next 2 to 3 days. Stable for discharge home. Dragon Disclaimer: Dragon Disclaimer: This electronic medical record was generated, in whole or in part, using a voice recognition dictation system. Departure Departure: Impression: Primary Impression: Syncope Qualified Codes: R55 - Syncope and collapse Additional Impression: Hypertension Qualified Codes: I10 - Essential (primary) hypertension Disposition: 01 HOME/RESIDENCE PRIOR TO ADM Condition: STABLE Referrals: LU KWAN MD (PCP) Patient Instructions: Syncope Additional Instructions: Please follow-up with your primary care physician in the next 2 to 3 days. Justification of Admission: Justification of Admission: Justification of Admission Dx: N/A BING JO DO Jul 01, 2020 07:50
[2020-07-01 08:05] VITALS: BP 167/84
--- NOTE | 2020-07-01 08:18 | RAD ---
CHEST AP ONLY 07/01/2020 7:46 AM INDICATION: Syncope COMPARISON: None available TECHNIQUE: Portable frontal view of the chest is provided. FINDINGS: The cardiomediastinal silhouette is within normal limits. Lungs are clear. There are no significant pleural effusions. There is no pulmonary vascular congestion. No pneumothorax. Anterior cervical discectomy and fusion hardware is partially profiled in the lower cervical spine. IMPRESSION: There is no acute cardiopulmonary process. Electronically signed by: Isha Rushing MD (07/01/2020 8:15 AM) JOHAN
[2020-07-01 08:35] LABS: BASO % 1 % (0-3); EOS # 0.2 x10^3/uL (0.0-0.7); EOS % 4 % (0-3); HEMATOCRIT 38.7 % (36.0-47.0); HEMOGLOBIN 13.1 g/dL (12.0-15.5); LYMPH # 1.5 x10^3/uL (1.0-4.8); LYMPH % 27 % (24-48); MEAN CORPUSCULAR HEMOGLOBIN 32 pg (25-35); MEAN CORPUSCULAR HGB CONC 34 g/dL (31-37); MEAN CORPUSCULAR VOLUME 95 fL (79-100); MONO # 0.4 x10^3/uL (0.0-1.1); MONO % 7 % (0-9); NEUT # 3.3 x10^3uL (1.8-7.7); NEUT % 62 % (31-73); PLATELET COUNT 204 x10^3/uL (140-400); RED BLOOD COUNT 4.09 x10^6/uL (3.50-5.40); RED CELL DISTRIBUTION WIDTH 12.6 % (11.5-14.5); WHITE BLOOD COUNT 5.4 x10^3/uL (4.0-11.0)
[2020-07-01 08:44] LABS: CALCIUM 9.5 mg/dL (8.5-10.1); GFR 58.2
--- NOTE | 2020-07-01 10:37 | EKG ---
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
== END 2020-07-01 09:29 | disposition home or self-care (01) ==
LOC: ER 07:33
DX: R55 Syncope and collapse (principal); I10 Essential (primary) hypertension; E03.9 Hypothyroidism, unspecified; M79.7 Fibromyalgia; F41.9 Anxiety disorder, unspecified; Y93.89 Activity, other specified; G43.909 Migraine, unspecified, not intractable, without status migrainosus; Z88.1 Allergy status to other antibiotic agents; Z88.5 Allergy status to narcotic agent; W18.39XA Other fall on same level, initial encounter; Y92.89 Other specified places as the place of occurrence of the external cause; Y99.8 Other external cause status
CPT/HCPCS: 36415; 71045; 80048; 81025; 84484; 85025; 93005; 99285

== ENCOUNTER 2020-08-20 15:55 | Emergency (ER) | payer OTHER, BC ==
[~2020-08-20] VITALS: Ht 165.1 cm; Wt 90.7 kg
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
[2020-08-20] MEDS ORDERED: ACETAMINOPHEN 500 MG TABLET PO ONE (16:45)
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
[2020-08-20] MEDS ORDERED: CYCL-331 PO ×2 (17:28→19:37)
[2020-08-20 17:34] VITALS: BP 145/70
== END 2020-08-20 17:37 | disposition home or self-care (01) ==
LOC: ER 15:55
DX: S13.4XXA Sprain of ligaments of cervical spine, initial encounter (principal); M54.6 Pain in thoracic spine; F41.9 Anxiety disorder, unspecified; I10 Essential (primary) hypertension; E05.90 Thyrotoxicosis, unspecified without thyrotoxic crisis or storm; Z88.1 Allergy status to other antibiotic agents; Z88.5 Allergy status to narcotic agent; V89.2XXA Person injured in unspecified motor-vehicle accident, traffic, initial encounter; Y93.89 Activity, other specified; Y92.89 Other specified places as the place of occurrence of the external cause; Y99.8 Other external cause status
CPT/HCPCS: 70450; 72125; 72128; 72131; 99285-25

== ENCOUNTER → 2020-10-25 | Outpatient (CLI) | payer OTHER, BC ==
[~2020-10-25] MED LIST changes: +CYCL-331 PO
--- NOTE | 2020-10-25 12:19 | RAD ---
EXAM: Left hip, 2 views HISTORY: Pain. COMPARISON: None. FINDINGS: 2 views of the left hip are obtained. There is no fracture, dislocation or subluxation. The re is marginal femoral head and acetabular spurring. There is a smooth benign osseous excrescence sup erior to the acetabulum. IMPRESSION: Mild osteoarthritis of the left hip. No acute osseous finding. Electronically signed by: Kareen Qureshi MD (10/25/2020 12:17 PM) [id number]
== END ==
LOC: PMG 11:47
PROVIDERS: ATTEND Family Medicine
DX: M16.12 Unilateral primary osteoarthritis, left hip (principal); M76.892 Other specified enthesopathies of left lower limb, excluding foot
CPT/HCPCS: 73502

== ENCOUNTER 2021-01-06 08:16 | Emergency (ER) | payer OTHER, BC ==
[~2021-01-06] VITALS: Ht 165.1 cm; Wt 90.7 kg
[2021-01-06] MEDS ORDERED: IV NORMAL SALINE 1,000ML 1,000 ML IV ONE (08:30)
[2021-01-06] MEDS ORDERED: METOCLOPRAMIDE HCL 10 MG/2 ML VIAL. IVP ONE (08:30)
[2021-01-06] MEDS ORDERED: IV NORMAL SALINE 1,000ML 1,000 ML IV SCH (08:30)
[2021-01-06] MEDS ORDERED: FAMOTIDINE 20 MG/2 ML VIAL IVP ONE (08:30)
[2021-01-06] MEDS ORDERED: FAMOTIDINE 20 MG/2 ML VIAL ONE (08:39)
[2021-01-06] MEDS ORDERED: MORPHINE SULFATE 4 MG/ML DISP.SYRIN. IV ONE (09:00)
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
[2021-01-06] MEDS ORDERED: IOHEXOL 300 MG/ML 75 ML VIAL. IV ONE (09:15)
[2021-01-06] MEDS ORDERED: CONTRAST GIVEN. MC PRN (09:30)
[2021-01-06 09:37] LABS: BASO % 0 % (0-3); EOS % 0 % (0-3); HEMOGLOBIN 13.7 g/dL (12.0-15.5); LYMPH # 0.8 x10^3/uL (1.0-4.8); LYMPH % 8 % (24-48); MEAN CORPUSCULAR HEMOGLOBIN 31 pg (25-35); MEAN CORPUSCULAR HGB CONC 33 g/dL (31-37); MEAN CORPUSCULAR VOLUME 94 fL (79-100); MONO # 0.9 x10^3/uL (0.0-1.1); MONO % 10 % (0-9); NEUT # 7.4 x10^3uL (1.8-7.7); NEUT % 81 % (31-73); PLATELET COUNT 183 x10^3/uL (140-400); RED BLOOD COUNT 4.39 x10^6/uL (3.50-5.40); WHITE BLOOD COUNT 9.1 x10^3/uL (4.0-11.0)
[2021-01-06 09:51] LABS: CALCIUM 8.7 mg/dL (8.5-10.1); CREATININE 0.9 mg/dL (0.6-1.0); GFR 65.8; POTASSIUM 3.6 mmol/L (3.5-5.1)
[2021-01-06 09:57] LABS: ALBUMIN 3.8 g/dL (3.4-5.0); ALBUMIN/GLOBULIN RATIO 1.2 (1.0-1.7); TOTAL BILIRUBIN 0.4 mg/dL (0.2-1.0); TOTAL PROTEIN 7.1 g/dL (6.4-8.2)
[2021-01-06 10:15] VITALS: BP 138/65
--- NOTE | 2021-01-06 10:47 | RAD ---
CT ABDOMEN+PELVIS W History: Reason: LOW ABDOMINAL /PELVIC PAIN, N/V/DIARRHEA, HX ISIDRO,HYSTERECTOMY / Spl. Instructions: OMNI 300 75ML IV / History: Technique: After the administration of intravenous contrast, CT imaging was performed of the abdomen and pelvis. Multiplanar images are reviewed. Exposure: One or more of the following individualized dose reduction techniques were utilized for thi s examination: 1. Automated exposure control 2. Adjustment of the mA and/or kV according to patient size 3. Use of iterative reconstruction technique. Comparison: February 24, 2019 Findings: Lower chest: No consolidation or pleural effusion. Abdomen and pelvis: Hepatic steatosis. Prior cholecystectomy. The spleen, adrenal glands, and pancrea s are unremarkable. Mild prominence of the biliary ducts, likely related to postcholecystectomy. Norm al appearance of the kidneys. No hydronephrosis. Normal appendix. No evidence of bowel obstruction. Multiple small mesenteric lymph nodes, similar com pared to prior. No ascites. Prior hysterectomy. Mild atheromatous plaque within the nonaneurysmal abd ominal aorta. Bones: No pathologic osseous lesions. Impression: 1. No acute abdominal or pelvic pathology. 2. Hepatic steatosis. 3. Prior cholecystectomy. Electronically signed by: Ulises Carney DO (01/06/2021 10:44 AM) [id number]
[2021-01-06] MEDS ORDERED: ONDANSETRON PF 4 MG/2 ML VIAL. IVP ONE (11:15)
[2021-01-06 11:17] LABS: BILIRUBIN,URINE NEG (NEG); CLARITY,URINE CLEAR; COLOR,URINE YELLOW; GLUCOSE,URINE NEG (NEG); NITRITE,URINE NEG (NEG); UROBILINOGEN,URINE 0.2 mg/dL (0.2 mg/dL)
[2021-01-06 11:18] LABS: BACTERIA,URINE 0 /HPF (0-FEW); SQUAMOUS EPITHELIAL CELL,UR MANY /LPF; WBC,URINE OCC /HPF (0-4)
[2021-01-06] MEDS ORDERED: ONDA4TAB12 PO (11:22)
== END 2021-01-06 11:50 | disposition home or self-care (01) ==
LOC: ER 08:16
DX: R11.2 Nausea with vomiting, unspecified (principal); R19.7 Diarrhea, unspecified; Z20.822 Contact with and (suspected) exposure to COVID-19; K76.0 Fatty (change of) liver, not elsewhere classified; I10 Essential (primary) hypertension; E03.9 Hypothyroidism, unspecified; Z90.49 Acquired absence of other specified parts of digestive tract; Z90.710 Acquired absence of both cervix and uterus; Z88.1 Allergy status to other antibiotic agents; Z88.5 Allergy status to narcotic agent
CPT/HCPCS: 36415; 74177; 80053; 81001; 82550; 83690; 83735; 85025; 96361; 96374; 96375; 99285; C9803; J2405; J2765; J3490; J7030; Q9967; U0003; U0005

== ENCOUNTER → 2021-10-10 | Outpatient (CLI) | payer OTHER, BC ==
[~2021-10-10] MED LIST changes: -CYCL-331 PO; +CYCL10TA19 PO; -MOME17SP NS; +MOME17SP5 NS; +ONDA4TAB12 PO
--- NOTE | 2021-10-10 10:44 | RAD ---
Digital Mammogram Bilateral History: Routine screening Technique: 2-D digital CC and MLO views were obtained. CAD - computer aided detection was utilize d. Comparison: Mammograms from 11/04/2019 and 08/23/2017. Findings: Breast Tissue Density B : There are scattered areas of fibroglandular density There are no suspicious masses, malignant appearing calcifications, or areas of architectural distort ion. There is mild scarring in the right retroareolar region from previous benign biopsy. Impression: No evidence of malignancy. Assessment: BI-RADS Category 1: Negative. Recommendation: Routine screening mammograms. The patient will receive a letter with the results in the mail. Patient information will be entered i nto the mammography reminder system with a target recall date for the next mammogram. A reminder jesica er will be generated. Electronically signed by: Victoria Turcios MD (10/10/2021 10:42 AM) [id number]
== END ==
LOC: MAMMO 09:59
PROVIDERS: ATTEND Family Medicine
DX: Z12.31 Encounter for screening mammogram for malignant neoplasm of breast (principal)
CPT/HCPCS: 77067

== ENCOUNTER → 2022-01-20 | Outpatient (CLI) | payer BC ==
--- NOTE | 2022-01-20 10:30 | RAD ---
XR CHEST 2V History: Cough, status post nasal surgery. Comparison: 07/01/2020 Technique: PA and lateral chest radiographs. Findings: The lungs are adequately and symmectrically inflated. No airspace consolidation, pleural effusion or pneumothorax. The cardiomediastinal silhoutte and pulmonary vasculature are within normal limits. Par tially visualized anterior cervical fusion. Degenerative osteophytes in the thoracic spine and degene rative changes of the shoulders. Soft tissues are unremarkable. Impression: 1. No acute cardiopulmonary process. Electronically signed by: Noe Das MD (01/20/2022 10:28 AM) [id number]
== END ==
LOC: PMG 10:07
PROVIDERS: ATTEND Nurse Practitioner Family
DX: M19.012 Primary osteoarthritis, left shoulder (principal); M19.011 Primary osteoarthritis, right shoulder; M25.78 Osteophyte, vertebrae; Z68.34 Body mass index [BMI] 34.0-34.9, adult; R05.9 Cough, unspecified; Z98.890 Other specified postprocedural states
CPT/HCPCS: 71046